=== PATIENT | male | born 1990 | race Caucasian/White ===

== ENCOUNTER 2018-02-20 08:54 | Emergency (ER) | payer BC, SELFPAY ==
[2018-02-20 08:58] VITALS: PULSE 79; RESP 16; TEMP 36.1; O2SAT 99; BMI 31.4
--- NOTE | 2018-02-20 09:12 | ED.VISSUMM ---
- ER Visit Summary Date of Service: 02/20/18 Chief Complaint: Vomiting diarrhea History of Present Illness: The patient is a 27 M who states of an adrenal crisis. He stops there and does not provide any other information unless direct questions are asked. He reports that he ate [employer] last night around the clock. At 030 0 hours he had vomiting which has persisted. He is unable to keep his medications down including his steroids for adrenal insufficiency. Triage nurse notes hyperventilation. He reports dizziness. No fevers. No recent antibiotics. Physical Examination: Afebrile vital signs are stable Gen: Well-nourished well-developed Head: Normocephalic atraumatic Eyes: Perrl EOMI ENT: TMs clear no rhinorrhea moist mucous membranes Neck: Supple no lymphadenopathy no JVD nontender CVS: Regular rate rhythm no murmurs normal S1-S2 Respiratory: Hyperventilating clear to auscultation bilaterally chest nontender Abdomen: Soft nontender nondistended hyperactive normal bowel sounds no masses Back: Nontender Extremity: Nontender no edema Skin: Normal color no rash Neuro: alert orientated ?3 CN II-XII intact normal strength sensation reflexes gait cerebellar Test Results: White count at 17. Creatinine 1.33 with a BUN of 24. Emergency Department Course and Treatment: Patient received IV fluids. We also administered Zofran and hydrocortisone. Repeat exam find the patient to be significantly improved. Tolerating p.o. He will be discharged home with prescription for Zofran return if worsening or concerns Impression: 1. Gastroenteritis 2. Adrenal insufficiency This note was generated with [employer] dictation software. It may contain incorrect words, spelling, and punctuation that were not noted in review of the chart prior to signing ED Disposition - Plan for ED Patient: Disposition: Home or Assisted Living Chief Complaint: Nausea/Vomiting Instructions: ED Gastroenteritis Viral Prescriptions: Ondansetron [Zofran Odt] 4 mg PO Q6H PRN PRN #10 tab PRN Reason: Nausea Referrals: Kamryn St MD [COURTESY STAFF PHYSICIAN] - 3-5 Days if not improving
[2018-02-20 09:21] LABS: Absolute Lymphocyte Count 2.61 X10^3/ul (0.83-4.51); Basophil# 0.02 X10^3/uL; Basophil% 0.1 % (0-1); Eosinophil# 0.57 X10^3/uL; Eosinophils% 3.4 % (0-5); Hemoglobin 17.8 g/dl (13.0-16.5); Lymphocyte # 2.61 X10^3/ul (4.0); Lymphocyte % 15.4 % (19-41); Mean Corp Hgb Conc 34.9 g/gl (32-36); Mean Corpuscular Hgb 29.7 pg (27.0-32.0); Mean Platelet Vol. 9.7 fl (6.2-12.0); Monocyte# 0.79 X10^3/uL; Monocyte% 4.7 % (0-10); Neutrophil # 12.96 X10^3/uL (2.7-7.7); Neutrophil % 76.3 % (47-70); POSITIVE COUNT NO; POSITIVE DIFFERENTIAL NO; POSITIVE MORPHOLOGY NO; Platelet Count 261 K/mm3 (150-450); RBC Distribution Width CV 12.7 % (11.6-14.6); RBC Distribution Width SD 39.6 fl (35.1-43.9)
[2018-02-20 09:33] LABS: ALB/GLOB Ratio 1.4 RATIO (0.9-2.4); AST(SGOT) 20 U/L (15-37); Alanine Aminotransfer ALT/SGPT 38 U/L (16-61); Albumin, Serum 4.5 g/dL (3.2-5.0); Alkaline Phosphatase 60 U/L (45-117); Anion Gap 10 (5-15); BUN 24 mg/dL (7-18); Calcium,Total 8.9 mg/dL (8.5-10.1); Chloride 105 mmol/L (98-107); Creatinine, Serum 1.33 mg/dL (0.70-1.30); EST Glomerular Filtration Rate 68 mL/min (>60); Est Glom Filt Rate - Afr Amer 83 mL/min (>60); Estimated Creatinine Clearance 75.29 ml/min; Globulin 3.2 g/dL (2.2-4.2); Glucose 108 mg/dL (74-106); Lipase 101 U/L (73-393); Potassium 3.7 mmol/L (3.5-5.1); Protein, Total 7.7 g/dL (6.4-8.2); Sodium Level 140 mmol/L (136-145)
[2018-02-20] MEDS: Hydrocortisone Sod Succinate 100 MG/2 ML Vial IV (09:56)
[2018-02-20] MEDS: 0.9% Normal Saline 1,000 ML 1000 ML IV (09:56)
[2018-02-20] MEDS: Ondansetron 4 MG/2 ML Vial IV (09:56)
[2018-02-20 10:00] VITALS: BP 96/57; PULSE 89; RESP 15; O2SAT 97
[2018-02-20 11:50] VITALS: BP 116/64; PULSE 90; RESP 16; O2SAT 96
== END 2018-02-20 11:57 | disposition home or self-care (01) ==
PROVIDERS: Emergency Provider Emergency Medicine
DX: K52.9 Noninfective gastroenteritis and colitis, unspecified (principal); E27.40 Unspecified adrenocortical insufficiency; R06.4 Hyperventilation; R42 Dizziness and giddiness; Z79.899 Other long term (current) drug therapy
CPT/HCPCS: 80053; 83690; 85025; 96361; 96374; 96375; 99283; J7030; A4216; J2405